=== PATIENT | female | born 1940 | race Caucasian/White ===

== ENCOUNTER 2023-11-09 13:27 | Emergency (ER) | payer OTHER ==
[~2023-11-09] VITALS: Ht 152.4 cm; Wt 77.1 kg
[2023-11-09 15:03] LABS: BASOPHILS ABSOLUTE AUTO 0.03 K/mm3 (0.00-0.23); BASOPHILS PERCENT AUTO 0 % (0-2); EOSINOPHILS ABSOLUTE AUTO 0.11 K/mm3 (0.00-0.68); EOSINOPHILS PERCENT AUTO 1 % (0-6); Hematocrit 23.2 % (33.0-51.0); Hemoglobin 6.6 g/dL (11.5-16.0); IMMATURE GRAN ABSOLUTE AUTO 0.04 K/mm3 (0.00-0.10); IMMATURE GRAN PERCENT AUTO 1 % (0-1); LYMPHOCYTES ABSOLUTE AUTO 2.89 K/mm3 (0.84-5.20); LYMPHOCYTES PERCENT AUTO 34 % (21-46); MONOCYTES ABSOLUTE AUTO 0.48 K/mm3 (0.16-1.47); MONOCYTES PERCENT AUTO 6 % (4-13); Mean Corpuscular HGB 18.7 pg (26.0-34.0); Mean Corpuscular HGB Conc 28.4 g/dL (31.5-36.5); Mean Corpuscular Volume 66 fL (80-100); Mean Platelet Volume 8.9 fL (9.1-12.4); NEUTROPHILS ABSOLUTE AUTO 5.03 K/mm3 (1.96-9.15); NEUTROPHILS PERCENT AUTO 59 % (41-73); Platelet Count 441 K/mm3 (150-400); RDW Coefficient Variation 19.9 % (11.7-14.2); RDW Standard Deviation 45.8 fL (35.1-46.3); Red Blood Cell Count 3.53 M/mm3 (3.80-5.20); White Blood Cell Count 8.58 K/mm3 (4.00-11.30)
[2023-11-09 15:23] LABS: Albumin, Blood 3.3 g/dL (3.4-5.0); Albumin/Globulin Ratio 0.7 (0.8-1.8); Bilirubin, Total 0.4 mg/dL (0.1-1.0); Bun/Creatinine Ratio 13.8 (12.0-20.0); Calcium, Blood 9.3 mg/dL (8.5-10.1); Creatinine, Blood 0.58 mg/dL (0.40-1.00); Globulin, Blood 4.8 g/dL (2.2-4.0); Potassium, Blood 3.7 mmol/L (3.5-5.5); Total Protein, Blood 8.1 g/dL (6.4-8.2)
[2023-11-09 18:19] LABS: Percent Saturation 4.1 % (15.0-50.0)
[2023-11-09] MEDS ORDERED: FERSU300 PO (19:12)
[2023-11-09 23:00] VITALS: BP 135/62
== END 2023-11-09 23:33 | disposition home or self-care (01) ==
LOC: ER 13:27
PROVIDERS: Physician Assistant; Student in an Organized Health Care Education/Training Program
DX: D50.9 Iron deficiency anemia, unspecified (principal); G89.29 Other chronic pain; Z88.0 Allergy status to penicillin
CPT/HCPCS: 36430; 71046; 80053; 82607; 82746; 83540; 83550; 85025; 86850; 86900; 86901; 86923; 93005; 93010; 96360; 96361; 99284-25; J7030; P9016

== ENCOUNTER 2023-11-20 11:11 | Inpatient (IN) | payer OTHER ==
[~2023-11-20] VITALS: Ht 152.4 cm; Wt 85.5 kg
[~2023-11-20 11:11] MED LIST: FERSU300 PO
[2023-11-20 11:42] LABS: BASOPHILS ABSOLUTE AUTO 0.04 K/mm3 (0.00-0.23); BASOPHILS PERCENT AUTO 0 % (0-2); EOSINOPHILS ABSOLUTE AUTO 0.12 K/mm3 (0.00-0.68); EOSINOPHILS PERCENT AUTO 1 % (0-6); Hematocrit 32.3 % (33.0-51.0); Hemoglobin 9.2 g/dL (11.5-16.0); IMMATURE GRAN ABSOLUTE AUTO 0.07 K/mm3 (0.00-0.10); IMMATURE GRAN PERCENT AUTO 1 % (0-1); LYMPHOCYTES PERCENT AUTO 24 % (21-46); MONOCYTES ABSOLUTE AUTO 0.46 K/mm3 (0.16-1.47); MONOCYTES PERCENT AUTO 5 % (4-13); Mean Corpuscular HGB 20.9 pg (26.0-34.0); Mean Corpuscular HGB Conc 28.5 g/dL (31.5-36.5); Mean Corpuscular Volume 73 fL (80-100); Mean Platelet Volume 9.5 fL (9.1-12.4); NEUTROPHILS ABSOLUTE AUTO 7.02 K/mm3 (1.96-9.15); NEUTROPHILS PERCENT AUTO 70 % (41-73); Platelet Count 410 K/mm3 (150-400); RDW Coefficient Variation 25.5 % (11.7-14.2); RDW Standard Deviation 64.8 fL (35.1-46.3); Red Blood Cell Count 4.41 M/mm3 (3.80-5.20); White Blood Cell Count 10.11 K/mm3 (4.00-11.30)
[2023-11-20 12:08] LABS: Influenza A, PCR NEGATIVE (NEGATIVE); Influenza B, PCR NEGATIVE (NEGATIVE); Resp Syncytial Virus, PCR NEGATIVE (NEGATIVE); SARS-Cov-2 (COVID-19) PCR, MMC NEGATIVE (NEGATIVE)
[2023-11-20 12:10] LABS: Albumin/Globulin Ratio 0.6 (0.8-1.8); Bilirubin, Total 0.3 mg/dL (0.1-1.0); Bun/Creatinine Ratio 17.6 (12.0-20.0); Calcium, Blood 8.8 mg/dL (8.5-10.1); Creatinine, Blood 0.57 mg/dL (0.40-1.00); Globulin, Blood 5.2 g/dL (2.2-4.0); Potassium, Blood 4.1 mmol/L (3.5-5.5); Total Protein, Blood 8.2 g/dL (6.4-8.2)
[2023-11-20 16:01] LABS: Hematocrit 31.2 % (33.0-51.0); Hemoglobin 9.1 g/dL (11.5-16.0)
[2023-11-20 16:48] LABS: Prothrombin Time Results 24.9 Sec (9.7-11.5)
[2023-11-20 17:09] LABS: Anti-Xa UFH, PHA Monitoring >1.50 IU/mL
[2023-11-20 18:36] LABS: Base Excess Venous -3.2 mmol/L; PCO2 Venous 28.3 mmHg (38-42); pH Blood Venous 7.47 (7.34-7.37)
--- NOTE | 2023-11-20 18:47 | NUR ---
ADMISSION NOTE PT IS ALERT AND ORIENTED X 4, SHE IS ABLE TO MAKE HER NEEDS KNOWN AND REPORTED AMBULATING INDEPENDENTLY AT BASELINE. BP AND HR STABLE, SPO2 DECREASES TO MID 80'S W/ EXERTION, SPO2 CURRENTLY MAINTAINED >95% VIA 4L NC. SHE DENIES FEELINGS OF CHEST PAIN/PRESSURE BUT REPORTED LIGHTHEADEDNESS WHEN AMBULATING DUE TO SOB. SHE WAS EDUCATED BY THIS RN REGARDING NEED TO USE CALL LIGHT TO VOID DUE TO HEPARIN INFUSION. SHE VOIDED USED BEDSIDE COMMODE. SHE REPORTED WISH TO BE DNR STATUS. HEPARIN INFUSING PER EMAR ORDERS. CALL LIGHT W/IN REACH.
[2023-11-20 19:54] VITALS: BP 130/75
--- NOTE | 2023-11-20 21:02 | NUR ---
ASSUMPTION OF CARE AFTER RECEIVING REPORT FROM SHERRY RN, THIS RN ASSUMED CARE AT APPROX 1915. DURING INITIAL ENCOUNTER, PATIENT ALERT, TALKING ON HOSPITAL PHONE WITH FAMILY. IS ALERT AND ORIENTED X4. COOPERATIVE WITH CARE, RECEPTIVE TO EDUCATION. TELEMETRY SHOWING SINUS TACH 100's. DENIES CHEST PAIN, PRESSURE. BP STABLE. HEPARIN GTT INFUSING PER EMAR IN LEFT AC. IS CURRENTLY ON 4L VIA NASAL CANNULA, SATS >92%. EXPERIENCES INCREASED SHORTNESS OF BREATH WITH TALKING AND MOBILITY. DOES REPORT LIGHTHEADEDNESS, DIZZINESS WITH MOBILITY. IS A ONE PERSON ASSIST TO BEDSIDE COMMODE, INDEPENDENT AT BASELINE. BASELINE URINARY INCONTINENCE. ATTENDS IN PLACE, CHANGING PRN TO KEEP C/D/I. CALL LIGHT IN REACH.
[2023-11-20 23:29] VITALS: BP 130/77
[2023-11-21 03:51] VITALS: BP 116/61
[2023-11-21 04:37] LABS: BASOPHILS ABSOLUTE AUTO 0.07 K/mm3 (0.00-0.23); BASOPHILS PERCENT AUTO 1 % (0-2); EOSINOPHILS ABSOLUTE AUTO 0.18 K/mm3 (0.00-0.68); EOSINOPHILS PERCENT AUTO 2 % (0-6); Hematocrit 28.8 % (33.0-51.0); Hemoglobin 8.3 g/dL (11.5-16.0); IMMATURE GRAN ABSOLUTE AUTO 0.07 K/mm3 (0.00-0.10); IMMATURE GRAN PERCENT AUTO 1 % (0-1); LYMPHOCYTES ABSOLUTE AUTO 3.19 K/mm3 (0.84-5.20); LYMPHOCYTES PERCENT AUTO 28 % (21-46); MONOCYTES ABSOLUTE AUTO 0.61 K/mm3 (0.16-1.47); MONOCYTES PERCENT AUTO 5 % (4-13); Mean Corpuscular HGB Conc 28.8 g/dL (31.5-36.5); Mean Corpuscular Volume 73 fL (80-100); NEUTROPHILS ABSOLUTE AUTO 7.47 K/mm3 (1.96-9.15); NEUTROPHILS PERCENT AUTO 64 % (41-73); Platelet Count 423 K/mm3 (150-400); RDW Coefficient Variation 25.8 % (11.7-14.2); RDW Standard Deviation 64.1 fL (35.1-46.3); Red Blood Cell Count 3.96 M/mm3 (3.80-5.20); White Blood Cell Count 11.59 K/mm3 (4.00-11.30)
[2023-11-21 05:03] LABS: Albumin, Blood 2.7 g/dL (3.4-5.0); Albumin/Globulin Ratio 0.6 (0.8-1.8); Bilirubin, Total 0.3 mg/dL (0.1-1.0); Bun/Creatinine Ratio 20.2 (12.0-20.0); Calcium, Blood 8.7 mg/dL (8.5-10.1); Creatinine, Blood 0.59 mg/dL (0.40-1.00); Globulin, Blood 4.7 g/dL (2.2-4.0); Potassium, Blood 4.1 mmol/L (3.5-5.5); Total Protein, Blood 7.4 g/dL (6.4-8.2)
--- NOTE | 2023-11-21 05:27 | NUR ---
SHIFT SUMMARY NO ACUTE CHANGES SINCE ASSUMPTION OF CARE NOTE. PATIENT SLEPT PERIODICALLY THROUGHOUT SHIFT, EASILY AROUSABLE TO VERBAL STIMULI. TELEMETRY SHOWING SINUS, SINUS TACH 90s-110s. BP STABLE, SBP 110s-130s. MAP >65. HEPARIN GTT INFUSING PER EMAR. IS ON 3L VIA NASAL CANNULA WHILE AT REST OR SLEEPING, SATS >90%. PATIENT DOES EXPERIENCE INCREASED SHORTNESS OF BREATH, DIFFICULTY BREATHING, AND MILD DIZZINESS WHILE STANDING AND PIVOTING TO BEDSIDE COMMODE. OXYGEN SATS DECREASE TO 85-88%, REQUIRES 4-5L VIA NASAL CANNULA FOR RECOVERY. OCCASIONAL HACKING, NONPRODUCTIVE COUGH NOTED. REMAINS ONE PERSON ASSIST WITH MOBILITY. ATTENDS IN PLACE FOR BASELINE URINARY INCONTINENCE MANAGEMENT, CHANGING PRN TO KEEP C/D/I. MEASURED VOID THIS SHIFT <300ML, X1 INCONTINENT VOID AT BEGINNING OF SHIFT. BLADDER SCAN PERFORMED MEASURABLE OUTPUT <300ML, SHOWING 25ML. ENCOURAGING INCREASED PO INTAKE WHILE AWAKE. NO BM THIS SHIFT. PATIENT ABLE TO REPOSITION HERSELF IN BED WITH MINIMAL TO NO ASSIST FROM STAFF. CALL LIGHT IN REACH. WILL REPORT TO ONCOMING RN.
[2023-11-21 07:50] VITALS: BP 133/68
[2023-11-21 11:26] VITALS: BP 142/65
[2023-11-21 14:34] LABS: Hematocrit 29.2 % (33.0-51.0); Hemoglobin 8.2 g/dL (11.5-16.0)
[2023-11-21 15:27] VITALS: BP 138/74
--- NOTE | 2023-11-21 17:47 | NUR ---
SHIFT SUMMARY; ASSUMED CARE AT 0700. A/A/OX3. COARSE L/S T/O. 4L 02 VIA NC TO MAINTAIN SATS >92%. HEPARIN INFUSING AT 18UNITS/KG PER EMAR. REPOSTIONS SELF NEEDED. PURWICK IN PLACE FOR INCONTINANCE. VSS, NO ACUTE CHANGES DURING SHIFT. WILL CONTINUE TO MONITOR AND TREAT UNTIL CHANGE OF SHIFT.
[2023-11-21 19:39] VITALS: BP 115/69
--- NOTE | 2023-11-21 20:26 | NUR ---
ASSUMPTION OF CARE AFTER RECEIVING REPORT FROM DEB WYNN, THIS RN ASSUMED CARE AT APPROX 1915. PATIENT SLEEPING DURING INITIAL ENCOUNTER, IS EASILY AROUSABLE TO VERBAL STIMULI. IS ALERT AND ORIENTED X4. COOPERATIVE WITH CARE, ABLE TO COMMUNICATE NEEDS EFFECTIVELY. TELEMETRY SHOWING SINUS, SINUS TACH 90s-110s. BP STABLE, SBP 110s. MAP >65. DENIES CHEST PAIN, PRESSURE. HEPARIN GTT INFUSING PER EMAR. IS CURRENTLY ON 2L VIA NASAL CANNULA, SATS >90%. EXPERIENCES INCREASED SHORTNESS OF BREATH, T[place]YPNEA WITH MOBILITY AND LONGER CONVERSATION. PATIENT DOES DESAT TO 85-88% WITH MOBILITY, REQUIRING 4-5L VIA NASAL CANNULA FOR RECOVERY. PUREWICK AND ATTENDS IN PLACE FOR BASELINE URINARY INCONTINENCE MANAGEMENT, CHANGING PRN TO KEEP C/D/I. IS ABLE TO PERFORM ADL's WITH MINIMAL TO NO ASSIST FROM STAFF. DOES REQUIRE ASSISTANCE FROM STAFF FOR MAJOR REPOSITIONING DUE TO INCREASED WEAKNESS AND DECREASED ACTIVITY TOLERANCE. CALL LIGHT IN REACH.
[2023-11-22 00:38] VITALS: BP 141/76
[2023-11-22 03:09] VITALS: BP 117/68
[2023-11-22 04:21] LABS: BASOPHILS ABSOLUTE AUTO 0.06 K/mm3 (0.00-0.23); BASOPHILS PERCENT AUTO 1 % (0-2); EOSINOPHILS ABSOLUTE AUTO 0.24 K/mm3 (0.00-0.68); EOSINOPHILS PERCENT AUTO 2 % (0-6); Hematocrit 27.8 % (33.0-51.0); IMMATURE GRAN PERCENT AUTO 1 % (0-1); LYMPHOCYTES ABSOLUTE AUTO 3.64 K/mm3 (0.84-5.20); LYMPHOCYTES PERCENT AUTO 35 % (21-46); MONOCYTES ABSOLUTE AUTO 0.56 K/mm3 (0.16-1.47); MONOCYTES PERCENT AUTO 5 % (4-13); Mean Corpuscular HGB 21.3 pg (26.0-34.0); Mean Corpuscular HGB Conc 28.8 g/dL (31.5-36.5); Mean Corpuscular Volume 74 fL (80-100); Mean Platelet Volume 9.5 fL (9.1-12.4); NEUTROPHILS ABSOLUTE AUTO 5.93 K/mm3 (1.96-9.15); NEUTROPHILS PERCENT AUTO 56 % (41-73); Platelet Count 446 K/mm3 (150-400); RDW Coefficient Variation 25.7 % (11.7-14.2); Red Blood Cell Count 3.75 M/mm3 (3.80-5.20); White Blood Cell Count 10.53 K/mm3 (4.00-11.30)
[2023-11-22 04:42] LABS: Albumin, Blood 2.4 g/dL (3.4-5.0); Albumin/Globulin Ratio 0.5 (0.8-1.8); Bilirubin, Total 0.3 mg/dL (0.1-1.0); Bun/Creatinine Ratio 20.8 (12.0-20.0); Calcium, Blood 8.1 mg/dL (8.5-10.1); Creatinine, Blood 0.58 mg/dL (0.40-1.00); Globulin, Blood 4.5 g/dL (2.2-4.0); Potassium, Blood 3.8 mmol/L (3.5-5.5); Total Protein, Blood 6.9 g/dL (6.4-8.2)
--- NOTE | 2023-11-22 05:07 | NUR ---
SHIFT SUMMARY NO ACUTE CHANGES SINCE ASSUMPTION OF CARE NOTE. PATIENT SLEPT THROUGHOUT SHIFT, EASILY AROUSABLE TO VERBAL STIMULI. TELEMETRY SHOWING SINUS 70s-90s. BP STABLE, SBP 110s-140s. MAP >65. REMAINS ON 2L VIA NASAL CANNULA, SATS >90%. DOES DESAT TO 88-89% WITH REPOSITIONING, ABLE TO RECOVER WITH DEEP BREATHING EXERCISES AND REST. PUREWICK AND ATTENDS IN PLACE FOR INCONTINENCE MANAGEMENT. VOIDING. NO BM THIS SHIFT. CALL LIGHT IN REACH. WILL REPORT TO ONCOMING RN.
[2023-11-22 06:55] VITALS: BP 145/78
--- NOTE | 2023-11-22 07:33 | NUR ---
Recieved report from Maria WYNN. Patient is resting lightly when we entered room and awoke easily for reprt. She is soft spoken and is oriented and able to communicate her needs. She denies and chest pain or SOB. She is on 2L O2 via NC and sats >90%. She is weak and able to move extremities slowly. She has bilateral 20ga IV in the AC's, and LAC infusing Heaprin at 18 units/kg/hr. She has purewick in place. She has no current needs.
--- NOTE | 2023-11-22 12:03 | NUR ---
Patient stated around 0900 that she was SOB at rest and felt she had elephant on chest. Leadership in room rounding at same time. Did EKG and called Dr Alvarado and gave update and asked for her to come see her. Did not see any changes from earlier EKG. Within several hours was back to normal. Dr Increased O2 to 5 L NC from 2L Nc and sats 100%. Just decreased back to 2 L and sats 96%. Patient daughter at bedside and answered her questions. Patient currently denies any needs.
--- NOTE | 2023-11-22 15:30 | NUR ---
Patient has been resting since last report. She awoke briefly whemn went in to assess breathing and she states no SOB and continues at 2L O2 via NC and sats >90%. She hasds ST r/t earlier episode of chest heaviness r/t meal. She has had Heparin Dc'd and has transitioned to Eliquis. Patient at that time denies any needs and has gone back to sleep.
--- NOTE | 2023-11-22 18:29 | NUR ---
Patient has continued to rest and was awkoen for dinner and tolerated well without signs of aspiration or chest discomfort. She continues on 2L O2 via NC and sats >90% and denies and SOB. No significant changes with patient since this am that resolved several hours later. She continues in SR and rate 80-100's. She has trasitioned to PO anticoagulation.
[2023-11-22 20:24] VITALS: BP 145/74
--- NOTE | 2023-11-22 21:40 | NUR ---
ASSUMPTION OF CARE AFTER RECEIVING REPORT FROM BRIE WYNN, THIS RN ASSUMED CARE AT APPROX 1915. PATIENT ALERT AND ORIENTED X4. COMPLETE BEDBATH, LINEN CHANGE PERFORMED THIS EVENING, PATIENT ABLE TO ASSIST WITH ADLs, REPOSITIONING. TELEMETRY SHOWING SINUS 70's. BP STABLE. DENIES CHEST PAIN, PRESSURE. HEPARIN GTT DISCONTINUED TODAY, PO ELIQUIS ADMINISTERED PER EMAR. IS ON 2L VIA NASAL CANNULA, SATS >90%. DOES DESAT TO 88-89% WITH ACTIVITY, ABLE TO RECOVER WITH DEEP BREATHING EXERCISES. NO ADDITIONAL OXYGEN REQUIRED. PUREWICK AND ATTENDS IN PLACE FOR BASELINE URINARY INCONTINENCE, CHANGING PRN TO KEEP C/D/I. IS A ONE PERSON ASSIST TO BEDSIDE COMMODE, CHAIR DUE TO DECREASED ACTIVITY TOLERANCE. ACTIVITY TOLERANCE IS IMPROVING SINCE ADMISSION. PATIENT STATUS CHANGE TO MEDICAL WITH TELEMETRY. REPORT GIVEN TO ACCEPTING RN ON MEDICAL UNIT. PATIENT TRANSFERRED OFF UNIT VIA HOSPITAL BED. PERSONAL BELONGINGS WITH PATIENT.
[2023-11-23 03:26] VITALS: BP 146/72
[2023-11-23 05:02] LABS: Hematocrit 28.6 % (33.0-51.0); Hemoglobin 8.2 g/dL (11.5-16.0)
[2023-11-23 07:17] VITALS: BP 156/83
--- NOTE | 2023-11-23 07:49 | NUR ---
SHIFT SUMMARY PT ARRIVED TO ROOM 360 VIA HOSPITAL BED, FROM PCU AROUND 2200. PT IS A&OX4. VSS ON 2L NC. NSR IN THE 70'S PER TELEMETRY. NO C/O CHEST PAIN/PRESSURE. BECOMES DYSPNEIC WITH EXERTION. DENIES PAIN THIS SHIFT. TOLERATING A REGULAR DIET WITH THIN LIQUIDS. NO COUGHING. WICKING SYSTEM IN PLACE DRAINING YELLOW URINE. NO BM THIS SHIFT. NOOB SINCE TRANSFERING TO MEDICAL FLOOR. BED IN LOWEST POSITION, CALL LIGHT WITHIN REACH.
--- NOTE | 2023-11-23 10:50 | NUR ---
report received verified pt a/o very pleasant no s/s of distress no sob, pt repositioned and calls appropriatly able to make needs known.
[2023-11-23] MEDS ORDERED: ELIQUIS5 M3 PO (12:26)
[2023-11-23] MEDS ORDERED: ELIQUIS5 M2 PO (12:27)
--- NOTE | 2023-11-23 15:51 | NUR ---
DISCHARGE ORDERS RECEIVED. O2 OFF PT UP IN CHAIR SATURATION MAINTAIN MID 90S NOT SIGNIFICANT SOB. PT STATED SHE WAS A LITTLE WEAK BUT WALKER WAS USED AN PT WAS ABLE TO AMBULATE WELL FOR DISCHARGE. INSTRUCTIONS GIVEN TO PT AND DAUGHTER BOTH STATED UNDERSTANDING. TELE REMOVED, BILATERAL IV DCED, PT ASSISTED TO WHEEL CHAIR FOR TANSFER DOWN STAIRS.
== END 2023-11-23 15:47 | disposition home or self-care (01) | DRG 175 ==
LOC: ER 11:11 → ICUE 16:13 → PCU 16:13 → MEDS 11-22 21:46 → ENPENDDIS 11-23 11:35 → MEDS 11-23 15:34
PROVIDERS: Emergency Medicine; Family Medicine; Physician Assistant; Student in an Organized Health Care Education/Training Program; ADMIT Hospitalist
DX: I26.92 Saddle embolus of pulmonary artery without acute cor pulmonale (principal); I21.4 Non-ST elevation (NSTEMI) myocardial infarction; J96.01 Acute respiratory failure with hypoxia; R65.11 Systemic inflammatory response syndrome (SIRS) of non-infectious origin with acute organ dysfunction; D50.9 Iron deficiency anemia, unspecified; D63.8 Anemia in other chronic diseases classified elsewhere; R79.1 Abnormal coagulation profile; Z66 Do not resuscitate; I35.0 Nonrheumatic aortic (valve) stenosis; I10 Essential (primary) hypertension; K44.9 Diaphragmatic hernia without obstruction or gangrene; D75.838 Other thrombocytosis; Z88.0 Allergy status to penicillin; Z11.52 Encounter for screening for COVID-19; Z87.891 Personal history of nicotine dependence
CPT/HCPCS: 0241U; 36415; 71046; 71260; 76705; 80053; 82272; 82728; 82803; 83880; 84484; 85014; 85018; 85025; 85379; 85520; 85610; 85730; 93005; 93010; 93306; 94760; 94762; 96374-59; 99285-25; A9270; J1644; Q9967